=== PATIENT | female | born 1965 | race Caucasian/White ===

== ENCOUNTER → 2018-02-02 | Outpatient (CLI) | payer OTHER ==
[~2018-02-02] MED LIST: ACE3 PO; CHOL10005 PO; ESOM40CA42 PO; IBU800 PO; LEVO50TA86 PO; LISI-353 PO; METO-257 PO; MULT-61 PO
--- NOTE | 2018-02-02 10:35 | RADIOLOGY IMAGING REPORT ---
[place] [facility] [place] JANEY ZAMARRIPA : [id number] MR: [id number] V: [id number] EXAM DATE: [id number] ORDERING PHYSICIAN: ROSIE SMITH TECHNOLOGIST: Judy Garsia PROCEDURE:BILATERAL DIGITAL SCREENING MAMMOGRAM WITH CAD ASSISTED INTERPRETATION & 3D TOMOSYNTHESIS COMPARISON:Prior mammograms 12/23/16, 08/22/15, 08/15/13, 04/21/11. INDICATIONS:SCREENING FINDINGS: Small amount of fibroglandular tissue is seen throughout the breasts. The parenchymal pattern has remained stable allowing for difference in mammographic technique & patient positioning. There is no evidence of malignant appearing mass, malignant appearing calcifications or other secondary sign of malignancy in either breast. DIAGNOSTIC CATEGORY 1--NEGATIVE. RECOMMENDATIONS: ROUTINE MAMMOGRAM AND CLINICAL EVALUATION. IMPRESSION: BIRADS 1: Negative No significant abnormality is seen. Dictated by: Delaney Bravo M.D. on 02/02/2018 at 9:00 Transcribed by: ANGELIQUE on 02/02/2018 at 9:08 Approved by: Delaney Bravo M.D. on 02/02/2018 at 10:34 [facility]
== END ==
LOC: MAMO 00:46
PROVIDERS: ATTEND Physician Assistant
DX: Z12.31 Encounter for screening mammogram for malignant neoplasm of breast (principal); Z80.3 Family history of malignant neoplasm of breast
CPT/HCPCS: 77063; 77067

== ENCOUNTER → 2019-04-02 | Outpatient (CLI) | payer OTHER ==
--- NOTE | 2019-04-02 13:49 | RADIOLOGY IMAGING REPORT ---
FACILITY: [facility] - [place] PATIENT NAME: JANEY ZAMARRIPA : [id number] MR: [id number] V: [id number] EXAM DATE: [id number] ORDERING PHYSICIAN: ROSIE SMITH TECHNOLOGIST: Ebony Moran PROCEDURE: BILATERAL DIGITAL SCREENING MAMMOGRAM WITH CAD ASSISTED INTERPRETATION & 3D TOMOSYNTHESIS REASON FOR STUDY: Screening. VIEWS OBTAINED: 2D & 3D full field CC & MLO. BREAST DENSITY: The breasts are almost entirely fatty. MAMMOGRAM FINDINGS: There is no suspicious mass, calcification, or architectural distortion. IMPRESSION: BIRADS 1: Negative. DIAGNOSTIC CATEGORY 1--NEGATIVE. RECOMMENDATIONS: ROUTINE MAMMOGRAM AND CLINICAL EVALUATION. Dictated by: Clement Turner M.D. on 04/02/2019 at 13:31 Transcribed by: ANGELIQUE on 04/02/2019 at 13:37 Approved by: Clement Turner M.D. on 04/02/2019 at 13:46 [facility]
--- NOTE | 2019-04-03 09:43 | RADIOLOGY IMAGING REPORT ---
FACILITY: [facility] - [place] PATIENT NAME: Kira Mondragon : 1965 MR: [id number] V: [id number] EXAM DATE: ORDERING PHYSICIAN: ROSIE SMITH TECHNOLOGIST: Location: [facility] Patient: Kira Mondragon : 1965 Visit/Account:[id number] Date of Sevice: 04/02/2019 DEXA Scan HISTORY: Postmenopausal screening. COMPARISON: None available. LUMBAR SPINE: The bone mineral density (BMD) measured from L1-L4 correlates with a Z-score of 0.3 and a T-score of 0.0 which is normal as defined by the World Health Organization. The corresponding risk of fracture in the lumbar spine is not increased compared with a young adult reference population. HIP: Bone mineral density (BMD) measured in the left femoral neck region correlates with a Z-score of -0.1 and a T-score of -0.8 which is normal as defined by the World Health Organization. The correspondin g risk of fracture in the hip is not increased compared with a young adult reference population. Bone mineral density (BMD) measured in the left Femoral Neck region measures 0.929 g/cm2. IMPRESSION: 1. Lumbar spine: Normal. 2. Left femoral neck: Normal. 3. Left Femoral Neck: Bone Mineral Density is 0.929 g/cm2 The next DEXA scan of this patient should include the following sites: L1-L4 and left hip. FRAX? WHO Fracture Risk Assessment Tool link: <http://www.shef.ac.uk/FRAX/tool.jsp?locationValue=9> PLEASE NOTE: 1) The World Health Organization defines low BMD as follows: T-score Normal > -1 Osteopenia < -1 and > -2.5 Osteoporosis < -2.5 without fractures Established osteoporosis < -2.5 with fractures 2) In general, you may wish to consider: Diagnosis Treatment Follow-up DEXA Normal BMD Prevention 2-3 years Osteopenia Prevention/therapy 1-2 years Osteoporosis Therapy Yearly 3) Fracture risk estimated from the T-score is more accurate for vertebral fractures (often spontane ous) than for hip fractures. Report Dictated By: Washington Palacio MD at 04/03/2019 9:35 AM Report E-Signed By: Washington Palacio MD at 04/03/2019 9:36 AM WSN:[id number]
== END ==
LOC: MAMO 00:17
PROVIDERS: ATTEND Physician Assistant
DX: Z12.31 Encounter for screening mammogram for malignant neoplasm of breast (principal); N95.9 Unspecified menopausal and perimenopausal disorder
CPT/HCPCS: 77063; 77067; 77080